=== PATIENT | female | born 1970 | race Caucasian/White ===

== ENCOUNTER 2017-01-22 01:50 | Observation (INO) | payer OTHER ==
[~2017-01-22] VITALS: Ht 149.9 cm; Wt 57.0 kg
[~2017-01-22 01:50] MED LIST: ACID REDUCER 1150 MG PO; ALPRAZOLAM ER1 MG PO; ALPRAZOLAM1 MG PO; AMBIEN10 M1 PO; AQUAPHOR OINTM105 GM TP; ASPIRIN EC325 MG PO; ATARAX,VISTARIL25 MG PO; Bactrim,Septra DS 80 PO; CEFDINIR300 MG PO; CIPRO500 MG PO; CLONAZEPAM0.5 MG PO; CLOPIDOGREL75 MG PO; DESYREL100 MG PO; DILAUDID8 MG PO; EFFEXOR75 MG PO; ELAVIL10 MG PO; ENDOCET 5-3251 EACH PO; FLEXERIL10 MG PO; FLUCONAZOLE100 MG PO; GLIPIZIDE ER2.5 MG PO; GLIPIZIDE10 M1 PO; HUMULIN 70100 UNIT/2 SC; HYDROMORPHONE HC8 MG PO; HYDROXYZINE PAM25 MG PO; KADIAN100 MG PO; KADIAN60 MG PO; KEFLEX500 MG PO; KLONOPIN0.5 M1 PO; KLONOPIN1 MG PO; LEVEMIR FL100 UNITS/ SC; LEVEMIR100 UNIT/2 SC; LISINOPRIL10 MG PO; LORTAB 5-325 M1 EACH PO; Lopid PO; METFORMIN HCL500 MG PO; METHADONE10 MG PO; MODAFINIL100 MG PO; MORPHINE SULFAT15 MG PO; MORPHINE SULFAT60 M1 PO; MORPHINE SULFAT60 MG; MOTRIN IB200 MG PO; MS CONTIN,ORAMO60 MG PO; NICOTINE PATCH1 EAC1 TD; NICOTINE PATCH1 EACH TD; NORCO 5/3251 TABLET PO; NOVOLIN INJ 70/30; NOVOLIN,HU100 UNITS/ SC; NOVOLOG 10100 UNITS/ SC; NOVOLOG PE100 UNITS/ SC; OXYCODONE HCL30 MG; OXYCODONE HCL30 MG PO; OXYCODONE30 MG PO; OXYCONTIN20 MG PO; OXYCONTIN60 MG PO; OxyCONTIN PO; PANTOPRAZOLE SO40 MG PO; PERCOCET 5/31 TABLET PO; PERCOCET 7.51 TABLET PO; PLAVIX75 MG PO; PRAVASTATIN SOD40 MG PO; PRAVASTATIN SOD80 MG PO; PREDNISONE20 MG PO; PRILOSEC40 MG PO; PROAIR HFA8.5 GM IH; PROTONIX40 MG PO; RANITIDINE HCL150 M1 PO; RISPERDAL1 MG PO; ROXICODONE30 MG PO; SEROQUEL PO; SEROQUEL50 MG PO; SERTRALINE HCL100 MG PO; ST. JOSEPH ASPI81 MG PO; SUPER B-50 COM1 EACH PO; TRAZODONE HCL50 MG PO; TYLENOL EXTRA500 MG PO; VALIUM10 MG PO; Valium PO; XANAX XR1 MG PO; ZOFRAN ODT4 MG PO; ZOLOFT PO; ZOLOFT100 M1 PO; ZOLOFT100 MG PO; Zocor PO; Zoloft PO; [UNRECOGNIZED DRUG - OTHER] PO; clonazepam PO
[2017-01-22 02:13] LABS: BASOPHIL COUNT 0.1 K/uL (0-0.1); EOSINOPHIL (%) 0 % (0-5); HEMATOCRIT 40.4 % (36.0-46.0); IMMATURE GRANULOCYTE COUNT 0.3 K/uL; INSTRUMENT ABS NEUTROPHIL CT 25.2 K/uL; LYMPHOCYTE COUNT 1.6 K/uL (1.0-2.8); MCH 29.9 PG (29.0-34.0); MCHC 34.7 G/DL (30.0-36.0); MCV 86.1 FL (83-99); MEAN PLAT.VOLUME 9.1 uM^3 (9.5-12.4); MONOCYTE (%) 4.4 % (3-12); MONOCYTE COUNT 1.2 K/uL (0-0.8); NEUTROPHIL (%) 88.7 % (45-76); NEUTROPHIL COUNT 25.2 K/uL (1.8-6.4); PLATELET COUNT 250 K/uL (156-360); RBC DIS.WIDTH-CV 12.1 % (11.8-14.6); RBC DIS.WIDTH-SD 38.3 % (39-53); RED BLOOD COUNT 4.69 M/uL (3.80-5.20); WHITE BLOOD COUNT 28.4 K/uL (4.1-10.2)
[2017-01-22 02:16] LABS: CARBON DIOXIDE (BICARBONATE) 27.8 MEQ/L (20-31)
[2017-01-22 02:25] LABS: CHLORIDE 98 mEq/L (99-109); POTASSIUM 3.9 mEq/L (3.7-5.4); SODIUM 139 mEq/L (136-147)
[2017-01-22 02:28] LABS: ANION GAP 16 MEQ/L (2-14)
[2017-01-22 02:29] LABS: TOTAL BILIRUBIN 0.9 mg/dL (0.0-1.0)
[2017-01-22 02:31] LABS: ALKALINE PHOSPHATASE 122 IU/L (3-129); GFR ESTIMATE (CALCULATED) 43 mL/min/; GLUCOSE 431 mg/dL (70-99)
[2017-01-22 02:32] LABS: UREA NITROGEN (BUN) 26 mg/dL (9-23)
[2017-01-22 02:34] LABS: LIPASE 4 U/L (1.0-51.0)
[2017-01-22 03:14] LABS: ADD MIUA? YES; BILIRUBIN NEGATIVE; BLOOD SMALL; COLOR YELLOW ((YELLOW)); GLUCOSE (STRIP) >=500; KETONES 20; LEUKOCYTES NEGATIVE; NITRITE NEGATIVE; PROTEIN (STRIP) 100; SPECIFIC GRAVITY 1.018 (1.000-1.030); UROBILINOGEN 0.2 MG/DL (0.2-1.0)
[2017-01-22 03:17] LABS: BACTERIA NONE SEEN /HPF; EPITHELIAL CELLS RARE /HPF; MUCUS NONE SEEN /LPF; RED BLOOD CELLS 15-20 /HPF (0-5); UCUL ADDED? NO; WHITE BLOOD CELLS 0-5 /HPF (0-5)
[2017-01-22 03:36] LABS: SAMPLE HEMOLYSIS CHECK 0; SAMPLE ICTERIC CHECK 0; SAMPLE LIPEMIA CHECK 0
[2017-01-22 03:55] LABS: TROP-I INTERPRETATION NEGATIVE; TROPONIN-I < 0.01 ng/mL (0.0-0.30)
[2017-01-22 04:44] LABS: POINT-OF-CARE METER ID UU14100415
[2017-01-22 08:29] VITALS: BP 187/86
[2017-01-22 09:00] LABS: ANION GAP 12 MEQ/L (2-14); CHLORIDE 101 MEQ/L (99-109); POTASSIUM 3.9 MEQ/L (3.7-5.4); SAMPLE HEMOLYSIS CHECK 0; SAMPLE ICTERIC CHECK 0; SAMPLE LIPEMIA CHECK 0; SODIUM 139 MEQ/L (136-147)
[2017-01-22 09:06] LABS: GFR ESTIMATE (CALCULATED) > 59 mL/min/; GLUCOSE 287 mg/dL (70-99); UREA NITROGEN (BUN) 21 mg/dL (9-23)
[2017-01-22 11:13] LABS: METH RESISTANT S AUREUS PCR NEGATIVE (NEGATIVE)
[2017-01-22 11:27] LABS: PROBE CHECK PASS; SPECIMEN PROCESSING CONTROL PASS
[2017-01-22 12:21] LABS: POINT-OF-CARE METER ID UU14162513
[2017-01-22 12:33] VITALS: BP 134/74
[2017-01-22] MEDS ORDERED: HYDROXYZINE HCL25 MG PO (13:34)
[2017-01-22] MEDS ORDERED: BENADRYL25 MG PO (13:35)
[2017-01-22] MEDS ORDERED: DOCUSATE SODIU100 MG PO (13:35)
[2017-01-22 13:38] LABS: C DIFF TOXIN NEGATIVE (NEGATIVE)
[2017-01-22 13:39] LABS: PROBE CHECK PASS; SPECIMEN PROCESSING CONTROL PASS
[2017-01-22 16:46] VITALS: BP 129/60
[2017-01-22 17:40] LABS: POINT-OF-CARE METER ID UU13113831
[2017-01-22 18:00] LABS: BASOPHIL COUNT 0.1 K/uL (0-0.1); EOSINOPHIL (%) 0 % (0-5); HEMATOCRIT 36.5 % (36.0-46.0); IMMATURE GRANULOCYTE (%) 0.7 % (0.0-0.7); IMMATURE GRANULOCYTE COUNT 0.2 K/uL; INSTRUMENT ABS NEUTROPHIL CT 20.4 K/uL; LYMPHOCYTE COUNT 2.9 K/uL (1.0-2.8); MCH 29.9 PG (29.0-34.0); MEAN PLAT.VOLUME 9.3 uM^3 (9.5-12.4); MONOCYTE (%) 6.9 % (3-12); MONOCYTE COUNT 1.7 K/uL (0-0.8); NEUTROPHIL (%) 80.7 % (45-76); NEUTROPHIL COUNT 20.4 K/uL (1.8-6.4); PLATELET COUNT 246 K/uL (156-360); RBC DIS.WIDTH-SD 38.6 % (39-53); RED BLOOD COUNT 4.15 M/uL (3.80-5.20); WHITE BLOOD COUNT 25.2 K/uL (4.1-10.2)
[2017-01-22 19:49] LABS: CHLORIDE 98 MEQ/L (99-109); GFR ESTIMATE (CALCULATED) 47 mL/min/; GLUCOSE 115 mg/dL (70-99); POTASSIUM 3.3 MEQ/L (3.7-5.4); SODIUM 137 MEQ/L (136-147); UREA NITROGEN (BUN) 23 mg/dL (9-23)
[2017-01-22 19:50] LABS: ALKALINE PHOSPHATASE 107 IU/L (3-129); TOTAL BILIRUBIN 0.9 MG/DL (0.0-1.0)
[2017-01-23] MEDS ORDERED: ZANTAC150 MG PO (20:08)
== END 2017-01-22 20:04 | disposition left against medical advice (07) ==
LOC: EME 01:50 → EDOF 05:49 → 5WEST 07:47
PROVIDERS: Emergency Medicine; Hospitalist
DX: R11.2 Nausea with vomiting, unspecified (principal); R10.9 Unspecified abdominal pain; N17.9 Acute kidney failure, unspecified; E87.2 Acidosis; E11.65 Type 2 diabetes mellitus with hyperglycemia; I69.354 Hemiplegia and hemiparesis following cerebral infarction affecting left non-dominant side; F17.200 Nicotine dependence, unspecified, uncomplicated
CPT/HCPCS: 74176; 80048 91; 80053; 81003; 82010; 82800; 82803; 82948; 83605; 83690; 83930; 84484; 85025; 85025 91; 87040; 87081; 87177; 87329; 87493; 87641; 93005; 99281; 99285; C9113; G0378; J1170; J1644; J1815; J2405; J2543; J2765; J3010; J3370; J7030; S0030

== ENCOUNTER 2017-01-23 17:46 | Emergency (ER) | payer OTHER ==
[~2017-01-23] VITALS: Ht 149.9 cm; Wt 55.6 kg
[~2017-01-23 17:46] MED LIST changes: +BENADRYL25 MG PO; +DOCUSATE SODIU100 MG PO; +HYDROXYZINE HCL25 MG PO
[2017-01-23 19:11] LABS: CHLORIDE 99 mEq/L (99-109); POTASSIUM 3.5 mEq/L (3.7-5.4); SODIUM 136 mEq/L (136-147)
[2017-01-23 19:14] LABS: ANION GAP 10 MEQ/L (2-14)
[2017-01-23 19:16] LABS: ALKALINE PHOSPHATASE 126 IU/L (3-129)
[2017-01-23 19:17] LABS: GFR ESTIMATE (CALCULATED) 57 mL/min/
[2017-01-23 19:18] LABS: UREA NITROGEN (BUN) 15 mg/dL (9-23)
[2017-01-23 19:19] LABS: HEMATOCRIT 39.3 % (36.0-46.0); MCH 29.4 PG (29.0-34.0); MCHC 33.8 G/DL (30.0-36.0); MCV 86.8 FL (83-99); MEAN PLAT.VOLUME 9.1 uM^3 (9.5-12.4); PLATELET COUNT 223 K/uL (156-360); RBC DIS.WIDTH-CV 11.8 % (11.8-14.6); RBC DIS.WIDTH-SD 37.7 % (39-53); RED BLOOD COUNT 4.53 M/uL (3.80-5.20)
[2017-01-23 19:20] LABS: LIPASE 13 U/L (1.0-51.0)
[2017-01-23 19:26] LABS: GLUCOSE 191 mg/dL (70-99); TOTAL BILIRUBIN 0.5 mg/dL (0.0-1.0)
[2017-01-23 19:29] LABS: QUANTITATIVE HCG < 4.0 MIU/ML
[2017-01-23] MEDS ORDERED: ZANTAC150 MG PO (20:08)
[2017-01-23 20:23] VITALS: BP 118/83
== END 2017-01-23 20:24 | disposition home or self-care (01) ==
LOC: EME 17:46
DX: K20.9 Esophagitis, unspecified (principal); E87.6 Hypokalemia; E11.65 Type 2 diabetes mellitus with hyperglycemia; Z79.84 Long term (current) use of oral hypoglycemic drugs; D72.829 Elevated white blood cell count, unspecified; F17.200 Nicotine dependence, unspecified, uncomplicated; Z88.8 Allergy status to other drugs, medicaments and biological substances; Z88.6 Allergy status to analgesic agent; Z88.5 Allergy status to narcotic agent; Z85.41 Personal history of malignant neoplasm of cervix uteri; I69.398 Other sequelae of cerebral infarction; R53.1 Weakness
CPT/HCPCS: 80053; 81003; 83690; 84702; 85027; 99281; 99284

== ENCOUNTER 2017-04-18 16:13 | Inpatient (IN) | payer OTHER ==
[~2017-04-18] VITALS: Ht 149.9 cm; Wt 58.0 kg
[~2017-04-18 16:13] MED LIST changes: +ZANTAC150 MG PO
[2017-04-18 17:05] LABS: CARBON DIOXIDE (BICARBONATE) 29.8 MEQ/L (20-31)
[2017-04-18 17:10] LABS: HEMATOCRIT 35.7 % (36.0-46.0); MCH 30.2 PG (29.0-34.0); MCHC 34.7 G/DL (30.0-36.0); MCV 87.1 FL (83-99); MEAN PLAT.VOLUME 9.6 uM^3 (9.5-12.4); PLATELET COUNT 215 K/uL (156-360); RBC DIS.WIDTH-CV 12.1 % (11.8-14.6); RBC DIS.WIDTH-SD 39.2 % (39-53)
[2017-04-18 17:19] LABS: CHLORIDE 101 mEq/L (99-109); POTASSIUM 3.9 mEq/L (3.7-5.4); SODIUM 139 mEq/L (136-147)
[2017-04-18 17:21] LABS: GLUCOSE 328 mg/dL (70-99)
[2017-04-18 17:22] LABS: ANION GAP 12 MEQ/L (2-14)
[2017-04-18 17:23] LABS: TOTAL BILIRUBIN 0.8 mg/dL (0.0-1.0)
[2017-04-18 17:24] LABS: SERUM ETHYL ALCOHOL < 10 mg/dL
[2017-04-18 17:25] LABS: ALKALINE PHOSPHATASE 85 IU/L (3-129); GFR ESTIMATE (CALCULATED) 51 mL/min/
[2017-04-18 17:26] LABS: UREA NITROGEN (BUN) 29 mg/dL (9-23)
[2017-04-18 17:39] LABS: QUANTITATIVE HCG < 4.0 MIU/ML
[2017-04-18 18:32] LABS: ADD MIUA? YES; BILIRUBIN NEGATIVE; BLOOD MODERATE; COLOR STRAW ((YELLOW)); GLUCOSE (STRIP) >=500; KETONES 20; LEUKOCYTES NEGATIVE; NITRITE NEGATIVE; PROTEIN (STRIP) 100; UROBILINOGEN 0.2 MG/DL (0.2-1.0)
[2017-04-18 18:38] LABS: BACTERIA RARE /HPF; EPITHELIAL CELLS 1+ /HPF; MUCUS TRACE /LPF; UCUL ADDED? NO; WHITE BLOOD CELLS 0-5 /HPF (0-5)
[2017-04-18 18:55] LABS: LIPASE < 3.0 U/L (1.0-51.0)
[2017-04-18] MEDS ORDERED: VISTARIL25 MG PO ×2 (20:19)
[2017-04-18] MEDS ORDERED: OPANA ER10 MG PO (20:20)
[2017-04-18] MEDS ORDERED: NARCAN4 MG NS (20:20)
[2017-04-18 21:48] LABS: POINT-OF-CARE METER ID UU13113702
[2017-04-18 22:16] LABS: AMPHETAMINE NEGATIVE (500 ng/mL); BARBITURATES NEGATIVE (200 ng/mL); BENZODIAZEPINES NEGATIVE (150 ng/mL); COCAINE PRESUMPTIVE POSITIVE (150 ng/mL); INTERNAL CONTROLS VALID? YES; METHADONE NEGATIVE (200 ng/mL); METHAMPHETAMINE NEGATIVE (500 ng/mL); OPIATES (MORPHINE) PRESUMPTIVE POSITIVE (100 ng/mL); OXYCODONE PRESUMPTIVE POSITIVE (100 ng/mL); PHENCYCLIDINE NEGATIVE (25 ng/mL); PROPOXYPHENE NEGATIVE (300 ng/mL); THC CANNABINOIDS NEGATIVE (50 ng/mL); TRICYCLIC ANTIDEPRESSANTS NEGATIVE (300 ng/mL)
[2017-04-18 22:17] LABS: ADD MEDTOX COMMENT Y
[2017-04-18 22:19] LABS: PROTHROMBIN TIME 10.4 (9.2-11.2)
[2017-04-18 23:57] VITALS: BP 177/80
[2017-04-19 02:29] LABS: AMYLASE 24 IU/L (1-118)
[2017-04-19 06:25] LABS: BASOPHIL COUNT 0.1 K/uL (0-0.1); EOSINOPHIL (%) 0.1 % (0-5); HEMATOCRIT 29.8 % (36.0-46.0); IMMATURE GRANULOCYTE (%) 0.7 % (0.0-0.7); IMMATURE GRANULOCYTE COUNT 0.1 K/uL; INSTRUMENT ABS NEUTROPHIL CT 13.4 K/uL; LYMPHOCYTE COUNT 1.9 K/uL (1.0-2.8); MCH 30.7 PG (29.0-34.0); MCHC 34.6 G/DL (30.0-36.0); MCV 88.7 FL (83-99); MONOCYTE (%) 7.6 % (3-12); MONOCYTE COUNT 1.3 K/uL (0-0.8); NEUTROPHIL (%) 79.8 % (45-76); NEUTROPHIL COUNT 13.4 K/uL (1.8-6.4); PLATELET COUNT 185 K/uL (156-360); RBC DIS.WIDTH-CV 12.3 % (11.8-14.6); RBC DIS.WIDTH-SD 39.8 % (39-53); RED BLOOD COUNT 3.36 M/uL (3.80-5.20); WHITE BLOOD COUNT 16.8 K/uL (4.1-10.2)
[2017-04-19 06:52] LABS: ALKALINE PHOSPHATASE 66 IU/L (3-129); ANION GAP 8 MEQ/L (2-14); CHLORIDE 102 MEQ/L (99-109); GFR ESTIMATE (CALCULATED) > 59 mL/min/; GLUCOSE 191 mg/dL (70-99); POTASSIUM 3.4 MEQ/L (3.7-5.4); SAMPLE HEMOLYSIS CHECK 0; SAMPLE ICTERIC CHECK 0; SAMPLE LIPEMIA CHECK 0; SODIUM 139 MEQ/L (136-147); TOTAL BILIRUBIN 0.3 MG/DL (0.0-1.0); UREA NITROGEN (BUN) 17 mg/dL (9-23)
[2017-04-19 08:03] VITALS: BP 121/57
[2017-04-19 11:05] LABS: POINT-OF-CARE METER ID UU13113717
[2017-04-19 12:07] VITALS: BP 120/87
[2017-04-19 16:11] VITALS: BP 137/66
[2017-04-19 19:45] VITALS: BP 107/55
== END 2017-04-19 20:46 | disposition left against medical advice (07) | DRG 392 ==
LOC: EME → EDBD 16:13 → EME 16:13 → 5SOUTH 21:14 → EDOF 21:14 → 5SOUTH 23:13
PROVIDERS: Emergency Medicine; Hospitalist; Internal Medicine; Physician Assistant Medical
DX: K52.9 Noninfective gastroenteritis and colitis, unspecified (principal); R11.2 Nausea with vomiting, unspecified; K08.9 Disorder of teeth and supporting structures, unspecified; R65.10 Systemic inflammatory response syndrome (SIRS) of non-infectious origin without acute organ dysfunction; E87.3 Alkalosis; D72.829 Elevated white blood cell count, unspecified; R06.82 Tachypnea, not elsewhere classified; R00.0 Tachycardia, unspecified; R32 Unspecified urinary incontinence; K21.9 Gastro-esophageal reflux disease without esophagitis; F17.200 Nicotine dependence, unspecified, uncomplicated; E11.65 Type 2 diabetes mellitus with hyperglycemia; F19.10 Other psychoactive substance abuse, uncomplicated; I10 Essential (primary) hypertension; F31.9 Bipolar disorder, unspecified; E78.5 Hyperlipidemia, unspecified; M79.7 Fibromyalgia; Z86.73 Personal history of transient ischemic attack (TIA), and cerebral infarction without residual deficits; Z79.4 Long term (current) use of insulin; Z87.19 Personal history of other diseases of the digestive system; Z85.41 Personal history of malignant neoplasm of cervix uteri
CPT/HCPCS: 71020; 74177; 80053; 81003; 82010; 82150; 82272; 82803; 82948; 83605; 83690; 84702; 84999; 85025; 85027; 85610; 85651; 86900; 86901; 87040; 93005; 93306; 99281; 99285; C9113; G0480; J0696; J1815; J2060; J2270; J2405; J2765; J7030; J7050; J7120; Q0177; S0028; S0030